=== PATIENT | male | born 1940 | race Caucasian/White ===

== ENCOUNTER 2022-05-27 22:05 | Inpatient (IN) ==
[2022-05-28 06:28] LABS: Basophils % 0.4 %; Eosinophils # 0.1 K/mcL (0.0-0.6); Eosinophils % 0.6 %; Immature Granulocytes % 0.4 % (0-4); Lymphocytes # 2.3 K/mcL (0.6-4.6); Lymphocytes % 20.8 %; Mean Corpuscular HGB Conc 33.3 g/dL (31.6-35.5); Mean Platelet Volume 9.7 fL (9.4-12.4); Monocytes # 0.7 K/mcL (0.0-1.3); Monocytes % 6.5 %; Neutrophils # 7.8 K/mcL (1.6-8.9); Platelet Count 345 K/mcL (140-400); Red Blood Count 3.45 M/mcL (4.19-5.50); Segmented Neutrophils % 71.3 %; White Blood Count 10.9 K/mcL (4.3-11.1)
[2022-05-28 06:34] LABS: INR 1.4; Prothrombin Time 15.2 Seconds (9.4-12.1)
[2022-05-28] MEDS: Aspirin 81 MG TAB.CHEW PO SCH (09:20)
[2022-05-28] MEDS: lisinopriL 5 MG TABLET PO SCH (09:20)
[2022-05-28] MEDS ORDERED: *HR* LORazepam 1 MG TABLET PO ONE (18:25)
[2022-05-29] MEDS: lisinopriL 5 MG TABLET PO SCH (08:41)
[2022-05-29] MEDS: Aspirin 81 MG TAB.CHEW PO SCH (08:41)
[2022-05-29] MEDS ORDERED: lisinopriL 5 MG TABLET PO ONE (08:58)
[2022-05-30] MEDS: lisinopriL 10 MG TABLET PO SCH (09:05)
[2022-05-30] MEDS: Aspirin 81 MG TAB.CHEW PO SCH (09:05)
[2022-05-31] MEDS: *HR* Enoxaparin 40 MG/0.4 ML SYRINGE SQ SCH (06:09)
[2022-05-31] MEDS: Aspirin 81 MG TAB.CHEW PO SCH (08:53)
[2022-05-31] MEDS: lisinopriL 10 MG TABLET PO SCH (08:54)
[2022-06-01] MEDS: *HR* Enoxaparin 40 MG/0.4 ML SYRINGE SQ SCH (05:29)
[2022-06-01] MEDS: lisinopriL 10 MG TABLET PO SCH (10:20)
[2022-06-01] MEDS: Aspirin 81 MG TAB.CHEW PO SCH (10:20)
[2022-06-02] MEDS: *HR* Enoxaparin 40 MG/0.4 ML SYRINGE SQ SCH (05:55)
[2022-06-02] MEDS: Aspirin 81 MG TAB.CHEW PO SCH (10:32)
[2022-06-02] MEDS: lisinopriL 10 MG TABLET PO SCH (10:32)
[2022-06-02] MEDS ORDERED: E-Z-PAQUE (BARIUM SULF) SUSP 1 BOTTLE PO ONE (16:10)
[2022-06-02] MEDS ORDERED: E-Z-HD (BARIUM SULF) SUSPENSION PO ONE (16:10)
[2022-06-03] MEDS: *HR* Enoxaparin 40 MG/0.4 ML SYRINGE SQ SCH (04:43)
[2022-06-03] MEDS: lisinopriL 10 MG TABLET PO SCH (09:27)
[2022-06-03] MEDS: Aspirin 81 MG TAB.CHEW PO SCH (09:28)
[2022-06-03] MEDS: Acetaminophen 325 MG TABLET PO PRN (18:19)
[2022-06-04] MEDS: *HR* Enoxaparin 40 MG/0.4 ML SYRINGE SQ SCH (05:39)
[2022-06-04] MEDS: Aspirin 81 MG TAB.CHEW PO SCH (09:24)
[2022-06-04] MEDS: Acetaminophen 325 MG TABLET PO PRN (09:25)
[2022-06-04] MEDS: lisinopriL 10 MG TABLET PO SCH (09:26)
[2022-06-05] MEDS: *HR* Enoxaparin 40 MG/0.4 ML SYRINGE SQ SCH (05:53)
[2022-06-05] MEDS: lisinopriL 10 MG TABLET PO SCH (08:19)
[2022-06-05] MEDS: Aspirin 81 MG TAB.CHEW PO SCH (08:19)
[2022-06-05] MEDS: Acetaminophen 325 MG TABLET PO PRN ×2 (14:01→21:17)
[2022-06-06] MEDS: *HR* Enoxaparin 40 MG/0.4 ML SYRINGE SQ SCH (05:30)
[2022-06-06] MEDS: Aspirin 81 MG TAB.CHEW PO SCH (10:11)
[2022-06-06] MEDS: lisinopriL 10 MG TABLET PO SCH (10:11)
[2022-06-06] MEDS: Acetaminophen 325 MG TABLET PO PRN (10:11)
[2022-06-07] MEDS: *HR* Enoxaparin 40 MG/0.4 ML SYRINGE SQ SCH (06:47)
[2022-06-07] MEDS: Aspirin 81 MG TAB.CHEW PO SCH (08:52)
[2022-06-07] MEDS: lisinopriL 10 MG TABLET PO SCH (08:52)
[2022-06-08] MEDS: *HR* Enoxaparin 40 MG/0.4 ML SYRINGE SQ SCH (07:08)
[2022-06-08 07:36] LABS: Basophils # 0.1 K/mcL (0.0-0.2); Basophils % 0.6 %; Eosinophils # 0.4 K/mcL (0.0-0.6); Eosinophils % 4.1 %; Hemoglobin 12.4 g/dL (12.9-16.9); Immature Granulocytes % 0.5 % (0-4); Lymphocytes # 2.5 K/mcL (0.6-4.6); Lymphocytes % 23.5 %; Mean Corpuscular HGB Conc 32.6 g/dL (31.6-35.5); Mean Corpuscular Hemoglobin 28.5 pg (28.0-33.3); Mean Corpuscular Volume 87.4 fL (83.0-100.0); Mean Platelet Volume 9.7 fL (9.4-12.4); Monocytes # 0.5 K/mcL (0.0-1.3); Monocytes % 4.8 %; Platelet Count 271 K/mcL (140-400); Red Blood Count 4.35 M/mcL (4.19-5.50); Red Cell Distribution Width 15.4 % (11.5-14.5); Segmented Neutrophils % 66.5 %; White Blood Count 10.5 K/mcL (4.3-11.1)
[2022-06-08 07:59] LABS: BUN/Creatinine Ratio 18 (6-26); Blood Urea Nitrogen 12 mg/dL (8-23); Calcium 8.4 mg/dL (8.6-10.3); Carbon Dioxide 32 mEq/L (23-29); Chloride 98 mEq/L (98-107); Glucose 86 mg/dL (70-105); Osmolality,Calculated 279 (280-300); Potassium 3.2 mEq/L (3.5-5.1); Sodium 135 mEq/L (136-145)
[2022-06-08] MEDS: lisinopriL 10 MG TABLET PO SCH (09:24)
[2022-06-08] MEDS: Aspirin 81 MG TAB.CHEW PO SCH (09:24)
[2022-06-09] MEDS: *HR* Enoxaparin 40 MG/0.4 ML SYRINGE SQ SCH (05:28)
[2022-06-09] MEDS: lisinopriL 10 MG TABLET PO SCH (09:42)
[2022-06-09] MEDS: Aspirin 81 MG TAB.CHEW PO SCH (09:43)
[2022-06-10] MEDS: *HR* Enoxaparin 40 MG/0.4 ML SYRINGE SQ SCH (05:29)
[2022-06-10] MEDS: lisinopriL 10 MG TABLET PO SCH (10:32)
[2022-06-10] MEDS: Aspirin 81 MG TAB.CHEW PO SCH (10:32)
[2022-06-10] MEDS: Acetaminophen 325 MG TABLET PO PRN (15:32)
[2022-06-11] MEDS: *HR* Enoxaparin 40 MG/0.4 ML SYRINGE SQ SCH (05:35)
[2022-06-11] MEDS: Aspirin 81 MG TAB.CHEW PO SCH (10:43)
[2022-06-11] MEDS: lisinopriL 10 MG TABLET PO SCH (10:43)
[2022-06-12] MEDS: *HR* Enoxaparin 40 MG/0.4 ML SYRINGE SQ SCH (07:27)
[2022-06-12] MEDS: lisinopriL 10 MG TABLET PO SCH (11:13)
[2022-06-12] MEDS: Aspirin 81 MG TAB.CHEW PO SCH (11:14)
[2022-06-13] MEDS: *HR* Enoxaparin 40 MG/0.4 ML SYRINGE SQ SCH (06:51)
[2022-06-13] MEDS: Aspirin 81 MG TAB.CHEW PO SCH (09:01)
[2022-06-13] MEDS: lisinopriL 10 MG TABLET PO SCH (09:02)
[2022-06-14] MEDS: *HR* Enoxaparin 40 MG/0.4 ML SYRINGE SQ SCH (05:09)
[2022-06-14] MEDS: Aspirin 81 MG TAB.CHEW PO SCH (09:49)
[2022-06-14] MEDS: lisinopriL 20 MG TABLET PO SCH (09:50)
[2022-06-15] MEDS: *HR* Enoxaparin 40 MG/0.4 ML SYRINGE SQ SCH (05:49)
[2022-06-15] MEDS: lisinopriL 20 MG TABLET PO SCH (07:22)
[2022-06-15] MEDS: Aspirin 81 MG TAB.CHEW PO SCH (07:22)
[2022-06-16] MEDS: *HR* Enoxaparin 40 MG/0.4 ML SYRINGE SQ SCH (05:17)
[2022-06-16] MEDS: lisinopriL 20 MG TABLET PO SCH (08:42)
[2022-06-16] MEDS: Aspirin 81 MG TAB.CHEW PO SCH (08:42)
[2022-06-16] MEDS ORDERED: Acetaminophen 325 MG TABLET PO ONE ×2 (19:46→19:56)
[2022-06-17] MEDS: *HR* Enoxaparin 40 MG/0.4 ML SYRINGE SQ SCH (04:54)
[2022-06-17] MEDS: Acetaminophen 325 MG TABLET PO PRN (05:00)
[2022-06-17] MEDS: lisinopriL 20 MG TABLET PO SCH (09:10)
[2022-06-17] MEDS: Aspirin 81 MG TAB.CHEW PO SCH (09:10)
[2022-06-17] MEDS ORDERED: predniSONE 20 MG TABLET PO SCH (09:45)
[2022-06-17 10:32] LABS: Basophils # 0.1 K/mcL (0.0-0.2); Basophils % 0.5 %; Eosinophils # 0.3 K/mcL (0.0-0.6); Eosinophils % 2.7 %; Hematocrit 35.3 % (37.5-50.1); Hemoglobin 11.7 g/dL (12.9-16.9); Immature Granulocytes % 0.3 % (0-4); Lymphocytes # 2.3 K/mcL (0.6-4.6); Lymphocytes % 22.4 %; Mean Corpuscular HGB Conc 33.1 g/dL (31.6-35.5); Mean Corpuscular Hemoglobin 30.1 pg (28.0-33.3); Mean Corpuscular Volume 90.7 fL (83.0-100.0); Monocytes # 0.7 K/mcL (0.0-1.3); Monocytes % 6.8 %; Neutrophils # 6.8 K/mcL (1.6-8.9); Platelet Count 212 K/mcL (140-400); Red Blood Count 3.89 M/mcL (4.19-5.50); Red Cell Distribution Width 16.5 % (11.5-14.5); Segmented Neutrophils % 67.3 %; White Blood Count 10.2 K/mcL (4.3-11.1)
[2022-06-17 10:46] LABS: BUN/Creatinine Ratio 31 (6-26); Blood Urea Nitrogen 22 mg/dL (8-23); Calcium 8.3 mg/dL (8.6-10.3); Carbon Dioxide 30 mEq/L (23-29); Chloride 98 mEq/L (98-107); Glucose 121 mg/dL (70-105); Osmolality,Calculated 277 (280-300); Potassium 4.1 mEq/L (3.5-5.1); Sodium 131 mEq/L (136-145)
[2022-06-17] MEDS ORDERED: Gadolinium Contrast Agent (WT Based) IV PRN (13:28)
[2022-06-17] MEDS ORDERED: *HR* LORazepam 2 MG/ML VIAL IVP ONE (16:49)
[2022-06-18] MEDS: *HR* Enoxaparin 40 MG/0.4 ML SYRINGE SQ SCH (05:32)
[2022-06-18] MEDS: lisinopriL 20 MG TABLET PO SCH (10:05)
[2022-06-18] MEDS: Aspirin 81 MG TAB.CHEW PO SCH (10:05)
[2022-06-18 19:33] VITALS: RESP 16
[2022-06-19] MEDS: *HR* Enoxaparin 40 MG/0.4 ML SYRINGE SQ SCH (05:26)
[2022-06-19 06:55] VITALS: BP 172/90; PULSE 84; TEMP 97.8; O2SAT 99
[2022-06-19] MEDS: lisinopriL 20 MG TABLET PO SCH (07:53)
[2022-06-19] MEDS: Aspirin 81 MG TAB.CHEW PO SCH (07:53)
== END 2022-06-19 16:31 | DRG 57 ==
LOC: INPPIK → OBSVTOIN 22:36 → SUATTDRO 22:36 → INPPIK 06-14 15:35
PROVIDERS: ADMIT Student in an Organized Health Care Education/Training Program; ATTEND Nurse Practitioner